=== PATIENT | female | born 1970 | race Caucasian/White ===

== ENCOUNTER 2024-04-16 12:25 | Emergency (ER) | payer BC, SELFPAY ==
[~2024-04-16] VITALS: Ht 172.7 cm; Wt 71.4 kg
[2024-04-16] MEDS: MORPHINE 4 MG/ML 1ML VIAL IV PRN (13:22)
[2024-04-16] MEDS ORDERED: PERC5TAB12 PO (14:30)
[2024-04-16] MEDS ORDERED: NARC1SPR NARES (14:30)
[2024-04-16 14:52] VITALS: BP 138/77; TEMP 96.8; O2SAT 98
== END 2024-04-16 15:00 | disposition home or self-care (01) ==
LOC: M ED 12:25 → EDBD 12:25 → M ED 15:00
DX: S83.92XA Sprain of unspecified site of left knee, initial encounter (principal); S92.491A Other fracture of right great toe, initial encounter for closed fracture; Y92.019 Unspecified place in single-family (private) house as the place of occurrence of the external cause; Y93.9 Activity, unspecified; Y99.9 Unspecified external cause status; W01.0XXA Fall on same level from slipping, tripping and stumbling without subsequent striking against object, initial encounter; N18.9 Chronic kidney disease, unspecified; E11.9 Type 2 diabetes mellitus without complications; J45.909 Unspecified asthma, uncomplicated; Z88.1 Allergy status to other antibiotic agents; Z88.8 Allergy status to other drugs, medicaments and biological substances; Z79.899 Other long term (current) drug therapy

== ENCOUNTER → 2024-05-05 | Outpatient (CLI) | payer SELFPAY ==
[~2024-05-05] MED LIST: NARC1SPR NARES; PERC5TAB12 PO
== END ==
LOC: M SOG 07:24
PROVIDERS: ATTEND Physician Assistant
DX: M25.562 Pain in left knee (principal); S92.314A Nondisplaced fracture of first metatarsal bone, right foot, initial encounter for closed fracture; W18.30XA Fall on same level, unspecified, initial encounter; Y92.009 Unspecified place in unspecified non-institutional (private) residence as the place of occurrence of the external cause